=== PATIENT | male | born 1965 | race Caucasian/White ===

== ENCOUNTER 2025-08-05 19:06 | Emergency (ER) | payer OTHER ==
[~2025-08-05] VITALS: Ht 195.6 cm; Wt 102.1 kg
[2025-08-05] MEDS ORDERED: TESTIM5 GM TD (19:34)
[2025-08-05] MEDS ORDERED: KETOROLAC TROMETHAMINE 30 MG VIAL IM STA (21:39)
[2025-08-05] MEDS ORDERED: KETOROLAC TROMETHAMINE 30 MG VIAL ONE (22:25)
[2025-08-05 23:12] LABS: BASO % 0.6 % (0.1-1.2); EOS # 0.19 (0.04-0.54); EOS % 2.4 % (0.7-7.0); LYMPH # 1.21 (1.18-3.74); LYMPH % 15.3 % (19.3-53.1); MEAN PLATELET VOLUME 11.20 fl (9.4-12.4); MONO # 0.68 (0.24-0.82); MONO % 8.6 % (4.7-12.5); NEUT # 5.75 (1.56-6.13); NEUT % 72.7 % (34.0-71.1); RED CELL DISTRIBUTION WIDTH 12.8 % (11.6-14.4)
[2025-08-05 23:31] LABS: INR 0.99
[2025-08-05 23:36] LABS: ALT/SGPT 30.0 U/L (12-78); AST/SGOT 21.0 U/L (15-37); BILIRUBIN TOTAL 0.74 mg/dL (0.3-1.2); BUN CREA RATIO 12.0 (7.0-25.0); CREATININE SERUM 1.34 mg/dL (0.70-1.30); GFR 54.19; GLOBULINA 3.2 G/DL (2.4-3.5); GLUCOSE FASTING 158.0 mg/dL (65-100); OSMOLALITY SERUM 286.0 MOSM/KG (275-295)
[2025-08-05 23:41] LABS: D DIMER 13.03 MG/L
[2025-08-06] MEDS ORDERED: APIXABAN 5 MG TABLET PO SCH (00:12)
== END 2025-08-06 10:36 | disposition home or self-care (01) ==
LOC: ER 19:06
PROVIDERS: General Practice
DX: M79.605 Pain in left leg (principal)

== ENCOUNTER 2025-08-16 08:11 | Outpatient (CLI) | payer OTHER ==
[~2025-08-16 08:11] MED LIST: TESTIM5 GM TD
== END 2025-08-16 08:12 | disposition home or self-care (01) ==
LOC: NUCLEAR 08:11
PROVIDERS: ATTEND Internal Medicine Hematology & Oncology
DX: I82.402 Acute embolism and thrombosis of unspecified deep veins of left lower extremity (principal); I87.2 Venous insufficiency (chronic) (peripheral)

== ENCOUNTER 2025-08-16 10:41 | Inpatient (IN) | payer OTHER ==
[~2025-08-16] VITALS: Ht 182.9 cm; Wt 99.8 kg
[2025-08-16] MEDS ORDERED: RINGERS SOLUTION,LACTATED 1,000 ML IV SCH (13:15)
[2025-08-16 13:50] VITALS: BP 130/80
[2025-08-16 14:23] LABS: ALT/SGPT 23.0 U/L (12-78); AST/SGOT 12.0 U/L (15-37); BILIRUBIN TOTAL 0.35 mg/dL (0.3-1.2); BUN CREA RATIO 22.0 (7.0-25.0); CREATININE SERUM 0.99 mg/dL (0.70-1.30); GFR 76.85; GLOBULINA 3.1 G/DL (2.4-3.5); GLUCOSE FASTING 93.0 mg/dL (65-100); LDH 204.0 U/L (87-241); OSMOLALITY SERUM 284.0 MOSM/KG (275-295)
[2025-08-16 14:44] LABS: INR 1.06
[2025-08-16 18:16] VITALS: BP 141/88
[2025-08-16] MEDS ORDERED: ENOXAPARIN SODIUM 100 MG/ML SYRINGE SUBCUTANEO SCH (21:00)
[2025-08-17 02:15] VITALS: BP 135/87; O2SAT 96
[2025-08-17 06:20] LABS: BASO % 1.2 % (0.1-1.2); EOS # 0.27 (0.04-0.54); EOS % 5.2 % (0.7-7.0); LYMPH # 1.73 (1.18-3.74); LYMPH % 33.5 % (19.3-53.1); MEAN PLATELET VOLUME 10.90 fl (9.4-12.4); MONO # 0.44 (0.24-0.82); MONO % 8.5 % (4.7-12.5); NEUT # 2.66 (1.56-6.13); NEUT % 51.4 % (34.0-71.1); RED CELL DISTRIBUTION WIDTH 11.8 % (11.6-14.4)
[2025-08-17 06:48] LABS: ALT/SGPT 19.0 U/L (12-78); AST/SGOT 12.0 U/L (15-37); BILIRUBIN TOTAL 0.43 mg/dL (0.3-1.2); BUN CREA RATIO 19.0 (7.0-25.0); CREATININE SERUM 1.01 mg/dL (0.70-1.30); GFR 75.1; GLOBULINA 2.2 G/DL (2.4-3.5); GLUCOSE FASTING 94.0 mg/dL (65-100); LDH 197.0 U/L (87-241); OSMOLALITY SERUM 287.0 MOSM/KG (275-295)
[2025-08-17 06:51] LABS: INR 1.07
[2025-08-17 06:54] LABS: ERYTHROCYTE SEDIMENTATION RATE 9 mm/hr (0-20)
[2025-08-17 09:30] VITALS: BP 139/77
[2025-08-17 17:53] VITALS: BP 138/82
== END 2025-08-17 18:04 | disposition home or self-care (01) | DRG 301 ==
LOC: MEDI 10:41 → SEC-K 10:41 → MEDI 13:40
PROVIDERS: ADMIT Internal Medicine Hematology & Oncology; ATTEND Internal Medicine Hematology & Oncology
DX: I82.402 Acute embolism and thrombosis of unspecified deep veins of left lower extremity (principal)

== ENCOUNTER 2025-10-12 09:28 | Outpatient (CLI) | payer OTHER ==
[2025-10-12 11:19] LABS: BASO % 1.0 % (0.1-1.2); EOS # 0.10 (0.04-0.54); EOS % 2.6 % (0.7-7.0); LYMPH # 1.11 (1.18-3.74); LYMPH % 28.6 % (19.3-53.1); MEAN PLATELET VOLUME 10.90 fl (9.4-12.4); MONO # 0.31 (0.24-0.82); MONO % 8.0 % (4.7-12.5); NEUT # 2.32 (1.56-6.13); NEUT % 59.8 % (34.0-71.1); RED CELL DISTRIBUTION WIDTH 12.3 % (11.6-14.4)
[2025-10-12 11:34] LABS: URINE APPEARANCE Clear; URINE BILIRRUBIN Negative (NEGATIVE); URINE BLOOD Negative; URINE COLOR Yellow; URINE GLUCOSE Negative (NEGATIVE); URINE KETONE Trace (NEGATIVE); URINE LEUKOCYTE Negative; URINE NITRATE Negative; URINE PROTEIN Negative (NEGATIVE); URINE UROBILINOGEN 0.2 E.U./dl
[2025-10-12 11:40] LABS: URINE BACTERIA 4.5 uL (0.0-1933); URINE EPITHELIAL CELLS 1.6 uL (0.0-38.8)
[2025-10-12 11:45] LABS: URINE CAST 0.14 uL (0.0-1.40); URINE RBC 0.7 uL (0.0-20.8); URINE WBC 1.6 uL (0.0-23.2)
[2025-10-12 11:52] LABS: D DIMER 0.23 MG/L; INR 0.96
[2025-10-12 11:59] LABS: ALT/SGPT 26.0 U/L (12-78); AST/SGOT 12.0 U/L (15-37); BILIRUBIN TOTAL 0.64 mg/dL (0.3-1.2); BILIRUBIN,CONJUGATED 0.29 mg/dL (0.0-0.2); BUN CREA RATIO 23.0 (7.0-25.0); CHOL HDL RATIO 2.0 (0-5.0); CREATININE SERUM 1.08 mg/dL (0.70-1.30); FE 88.0 ug/dl (65-175); GFR 69.51; GLUCOSE FASTING 99.0 mg/dL (65-100); HDL 77.0 mg/dl (40-60); LDL 71.0 mg/dl (0-130); OSMOLALITY SERUM 286.0 MOSM/KG (275-295); PROSTATIC SPECIFIC ANTIGEN 1.24 NG/ML (0.010-4.00); TSH 1.05 uIU/mL (0.358-3.74); VLDL 6.0 (0-39)
[2025-10-12 12:00] LABS: T4 TOTAL 7.23 UG/DL (4.5-12.1)
[2025-10-12 15:10] LABS: FOLIC ACID 8.54 ng/ml (4.78-20); T3 TOTAL 1.13 ng/ml (0.846-2.02); VITAMIN D3 25 HYDROXY 41.68 ng/ml (30-120)
[2025-10-13 08:06] LABS: HEPATITIS C VIRUS ANTIBODY Non Reactive (Non Reactive)
[2025-10-13 10:10] LABS: ESTRADIOL SERUM 21.4 pg/mL (7.6-42.6); INSULIN LEVELS 7.8 uIU/mL (2.6-24.9); LEUTEINIZING HORMONE 11.6 mIU/mL (1.7-8.6)
[2025-10-14 16:11] LABS: PROTEIN C ACTIVITY 109 % (73-180); PROTEIN S ACTIVITY 80 % (63-140); T T 611 ng/dL (264-916); test free 5.2 pg/mL (6.6-18.1)
[2025-10-16 18:10] LABS: PROTEIN C ANTIGEN 105 % (60-150)
== END 2025-10-12 10:03 | disposition home or self-care (01) ==
LOC: LAB 09:28
DX: Z13.1 Encounter for screening for diabetes mellitus (principal); Z00.00 Encounter for general adult medical examination without abnormal findings; Z13.220 Encounter for screening for lipoid disorders; Z12.5 Encounter for screening for malignant neoplasm of prostate; Z12.11 Encounter for screening for malignant neoplasm of colon; Z11.59 Encounter for screening for other viral diseases; R68.82 Decreased libido; E55.9 Vitamin D deficiency, unspecified; E56.8 Deficiency of other vitamins; Z13.29 Encounter for screening for other suspected endocrine disorder; I82.409 Acute embolism and thrombosis of unspecified deep veins of unspecified lower extremity; Z01.818 Encounter for other preprocedural examination

== ENCOUNTER 2025-10-14 09:41 | Outpatient (CLI) | payer OTHER ==
[2025-10-14 11:05] LABS: ob NEGATIVE (NEGATIVE)
== END 2025-10-14 09:49 | disposition home or self-care (01) ==
LOC: LAB 09:41
DX: Z13.1 Encounter for screening for diabetes mellitus (principal); Z00.00 Encounter for general adult medical examination without abnormal findings; Z13.220 Encounter for screening for lipoid disorders; Z12.5 Encounter for screening for malignant neoplasm of prostate; Z12.11 Encounter for screening for malignant neoplasm of colon; Z11.59 Encounter for screening for other viral diseases